=== PATIENT | male | born 1980 | race Hispanic/Latino ===

== ENCOUNTER 2024-06-16 15:30 | Emergency (ER) | payer MEDICARE, OTHER ==
[2024-06-16] VITALS (8 sets, daily range): BP systolic 140–171; BP diastolic 56–86
[~2024-06-16] VITALS: Ht 149.9 cm; Wt 81.6 kg
[~2024-06-16 15:30] MED LIST: ACCU CHEK AVIVA XX; ACCU CHEK FASTCLIX XX; ACCU-CHEK ACTIVE STR XX; ACCU-CHEK AVIVA PLUS SC; ACTOS45 MG PO; AMOXICILLIN500 MG PO; AMOXICILLIN875 MG PO; ASPIRIN ADULT L81 M2 PO; BABY ASPIRIN81 MG PO; BD INSULIN SC; CALCITRIOL0.5 MC1 PO; CIPROFLOXACN500 MG PO; FLONASE NASAL50 MCG; FLUARIX QUADRIV1 INJ IM; FLUZONE SPLT1 M1 IM; HUMULIN 70/30 SC; LEVEMIR SC; LEVOTHYROXIN125 MCG PO; LEVOTHYROXIN137 MCG PO; LEVOTHYROXIN150 MC1 PO; LISINOPRIL10 MG PO; LISINOPRIL20 M1 OR; METFORMIN1000 MG PO; NIACIN500 M4 PO; NOVOLOG MIX SC; ONE TOUCH ULTRA 100 XX; ONE TOUCH ULTRA LANC XX; OS CAL OR; PIOGLITAZONE HC30 MG PO; POLYTRIM OU; ROCALTROL0.5 MC1 PO; SIMCOR OR; SIMCOR1 TA1 PO; SLO-NIACIN500 MG PO; ZOCOR20 M1 PO; [UNRECOGNIZED DRUG - OTHER] OR
[2024-06-16] MEDS ORDERED: GABAPENTIN300 M3 PO (17:06)
== END 2024-06-16 17:21 | disposition home or self-care (01) ==
LOC: ED 15:30
DX: E11.42 Type 2 diabetes mellitus with diabetic polyneuropathy (principal); I10 Essential (primary) hypertension; E78.5 Hyperlipidemia, unspecified